=== PATIENT | male | born 1945 | race Caucasian/White ===

== ENCOUNTER 2022-01-07 17:11 | Observation (INO) ==
--- NOTE | 2022-01-07 18:03 | DR.HTN ---
HPI Time Seen Time Seen by Provider: 01/07/22 18:01 Primary Care Physician Primary Care Physician: DR. GUY HPI Comment HPI Comment: PATIENT IS 76YR OLD MALE IN ER WITH COMPLAINING OF ELEVATED BP AND CHEST PAIN. CHEST PAIN FEEL LIKE HEART BURN. NO FEVER, COUGH OR CONGESTION. HISTORY CVA AND HYPERTENSION. WAS ON METOPROLOL BUT DISCONTINUE DUE TO BRADYCARDIA. HISTORY CVA AND HTN. CURRENTLY ON ELIQUIS. Complaints Chief Complaint:: PT STATES HE CHECKED HIS BP AT 2 TODAY AND IT WAS 205/64 AT HOME. PT HAS HAD BP PROBLEMS FOR AWHILE. PT STATES THAT HE ALSO HAS BEEN HAVING PAIN THAT FEELS LIKE HEART BURN. PT HAVING NO PAIN AT THIS TIME. HE WAS SUPPOSE TO SEE A ON SATURDAY TO WEAR A HEART MONITOR. COVID-19 Coronavirus risk:travel/contact w/high risk person: No Has patient experienced Coronavirus symptoms: No Reviewed Nurses Notes Reviewed: Yes Source History Provided: Patient and Family Member Mode of Arrival Mode of Arrival: Ambulatory Timing Onset of Chief Complaint: 01/07/22 Context Treatment of HTN Prior to Arrival: Recent Cessation and Rec. change in med regime Associated Signs and Symptoms HTN Associated Signs and Symptoms: Weakness and Shortness of Breath PMH PMH Past Medical History: Yes Past Medical History: CVA and Hypertension Past Medical History Comment: CVA IN 2005 Past Surgical History: Yes Past Surgical History Comment: CATARACT SURGERY ON BOTH EYES Family History History of Family Medical Conditions: Yes Family Medical History Comment: STROKE Social History Does patient currently use any type of tobacco product: No Have you used tobacco products in the last 12 months: No Type of Tobacco Use: None Alcohol Use: None Do you use any recreational Drugs:: No Lives With: Spouse Lives Where: Home Travel Risk Coronavirus risk:travel/contact w/high risk person: No Has patient experienced Coronavirus symptoms: No Infectious screening Have you traveled outside the country in the last 6 months?: No Isolation: Standard ROS Review of Systems Constitutional: See HPI, Weakness and Fatigue; negative Fever Eyes: No Symptoms Reported and See HPI; negative Blurred Vision ENTM: No Symptoms Reported and See HPI; negative Nose Discharge or Nose Congestion Respiratoy: No Symptoms Reported, See HPI and Short of Breath (ON EXERTION.); negative Moist Cough or Wheezing Cardiovascular: No Symptoms Reported, See HPI and Chest Pain; negative Palpitati ons (BRADYCARDIA.) Gastrointestinal/Abdominal: No Symptoms Reported and See HPI; negative Abdominal Pain, Diarrhea, Nausea or Vomiting Genitourinary: No Symptoms Reported and See HPI; negative Dysuria Neurological: See HPI and Weakness; negative Headache or Dizziness Musculoskeletal: No Symptoms Reported and See HPI; negative Muscle Pain Integumentary: No Symptoms Reported and See HPI; negative Rash or Juandice Hematologic/Lymphatic: No Symptoms Reported, See HPI, Easy Bleeding and Easy Bruising; negative Swollen Glands Endocrine: No Symptoms Reported and See HPI; negative Increased Thirst or Increased Urine Psychiatric: No Symptoms Reported and See HPI All Other Systems: Reviewed and Negative PE Vital Signs Vitals: Temperature 98.0 F Pulse Rate 51 Respiratory Rate 29 Blood Pressure 207/81 O2 Sat by Pulse Oximetry 98 General Limitations: No Limitations General Appearance: Alert and In No Apparent Distress Head Head Exam: Normal Inspection and Atraumatic Eyes Eye exam: Normal Appearance; negative Scleral Icterus or Conjunctival Injection Pupils: Regular, Round: Bilateral and Reactive: Bilateral Sclera/Conjunctival: Normal Inspection: Bilateral ENT ENT Exam: Normal Exam, Normal Oropharynx, Normal External Ear Exam and TM's Normal Bilaterally Neck Neck Exam: Normal Inspection and Trachea Midline; negative Tenderness Chest Chest Inspection: Normal Inspection and Symmetric Chest Wall Rise; negative Tenderness Respiratory Respiratory Exam: Normal Lung Sounds Bilat; negative Accessory Muscle Use, Chest Wall Tenderness or Respiratory Distress Respiratory Exam: Bilateral: Rhonchi Cardiovascular Cardiovascular Exam: Bradycardia and Systolic Murmur; negative Diastolic Murmur Abdominal Exam Abdominal Exam: Normal Inspection, Normal Bowel Sounds and Soft; negative Tenderness Extremities Extremities Exam: Normal Inspection and Normal Capillary Refill Back Back Exam: Normal Inspection; negative (R) CVA Tenderness or (L) CVA Tenderness Neurologic Neurological Exam: Alert and Oriented X3; negative Motor Sensory Deficit Patient Oriented To: Person, Place and Time Speech: Fluid Speech Cranial Nerve Exam: EOM Function (II, III, IV, ): Normal, Facial Sensation (V): Normal, Facial Palsy (VII): Normal, Gag reflex (XI): Normal and Tongue Deviation: Normal Motor Strength - LUE: 5/5 Motor Strength - RUE: 5/5 Motor Strength - LLE: 5/5 Motor Strength - RLE: 5/5 Upper Motor Neuron Exam: Babinski Sign: Normal Psychiatric Psychiatric Exam: Normal Affect and Normal Mood Skin Skin Exam: Intact MDM Differential Diagnosis Differential Diagnosis: Hypertensive emergency (BRADYCARDIA, CHEST PAIN.) COURSE Treatment Treatment: SEE ORDERS DONE WHILE WAS IN ER. Consultation Consultation Comments: DISCUSSED PATIENT WITH DR. FENG. HE WILL ADMIT PATIENT. Education/Counseling Education/Counseling: Patient and Family Educated On: Treatment and Diagnosis ROR Labs Reviewed Laboratory Results Reviewed?: Yes Result Diagrams: 01/08/22 04:50 01/08/22 04:50 Laboratory: WBC 5.1 X10^3/uL (3.6-10.0) 01/07/22 18:21 RBC 3.99 X10^6/uL (4.7-6.0) L 01/07/22 18:21 Hgb 10.3 g/dL (13.5-18.0) L 01/07/22 18:21 Hct 30.2 % (42.0-54.0) L 01/07/22 18:21 MCV 75.8 fL (80.0-100.0) L 01/07/22 18:21 MCH 25.8 pg (27.0-34.0) L 01/07/22 18:21 MCHC 34.0 g/dL (33.0-35.0) 01/07/22 18:21 RDW 17.4 % (11.6-16.5) H 01/07/22 18:21 Plt Count 126 X10^3/uL (150.0-450.0) L 01/07/22 18:21 MPV 8.9 fL (7.4-11.0) 01/07/22 18:21 Neut % (Auto) 75.7 % (42.0-75.0) H 01/07/22 18:21 Lymph % (Auto) 12.5 % (21.0-51.0) L 01/07/22 18:21 [place] % (Auto) 5.8 % (0.0-13.0) 01/07/22 18:21 Eos % (Auto) 4.1 % (0.9-2.9) H 01/07/22 18:21 Baso % (Auto) 1.9 % (0.2-1.0) H 01/07/22 18:21 Neut # (Auto) 3.9 x10^3/uL (2.2-4.8) 01/07/22 18:21 Lymph # (Auto) 0.6 X10^3/uL (1.3-2.9) L 01/07/22 18:21 [place] # (Auto) 0.3 x10^3/uL (0.3-0.8) 01/07/22 18:21 Eos # (Auto) 0.2 x10^3/uL (0.0-0.2) 01/07/22 18:21 Baso # (Auto) 0.1 X10^3/uL (0.0-0.1) 01/07/22 18:21 Absolute Nucleated RBC 0.0 /100WBC 01/07/22 18:21 D-Dimer 0.57 ug/ml (0.0-0.57) 01/07/22 18:21 Sodium 139 mmol/L (136-145) 01/07/22 18:21 Corrected Sodium 140 mmol/L (136-145) 01/07/22 18:21 Potassium 3.9 mmol/L (3.5-5.1) 01/07/22 18:21 Chloride 102 mmol/L (98-107) 01/07/22 18:21 Carbon Dioxide 30.0 mmol/L (21-32) 01/07/22 18:21 BUN 14 mg/dL (7-18) 01/07/22 18:21 Creatinine 1.32 mg/dL (0.70-1.30) H 01/07/22 18:21 Est GFR (MDRD) Af Amer > 60 (>60) 01/07/22 18:21 Est GFR (MDRD) Non-Af 56 (>60) L 01/07/22 18:21 Glucose 150 mg/dL (65-99) H 01/07/22 18:21 Calcium 8.3 mg/dL (8.5-10.1) L 01/07/22 18:21 Corrected Calcium 9.0 mg/dL (8.5-10.1) 01/07/22 18:21 Total Bilirubin 0.30 mg/dL (0.2-1.0) 01/07/22 18:21 AST 17 Units/L (15-37) 01/07/22 18:21 ALT 13 Units/L (12-78) 01/07/22 18:21 Alkaline Phosphatase 87 Units/L (46-116) 01/07/22 18:21 Creatine Kinase 30 Units/L (39-308) L 01/07/22 18:21 Troponin I High Sens 16.3 ng/L (4.0-60.0) 01/07/22 18:21 B-Natriuretic Peptide 449 pg/mL (0-79) H 01/07/22 18:21 Total Protein 7.4 g/dL (6.4-8.2) 01/07/22 18:21 Albumin 3.1 g/dL (3.4-5.0) L 01/07/22 18:21 Globulin 4.3 g/dL (2.5-4.5) 01/07/22 18:21 Albumin/Globulin Ratio 0.7 Ratio (1.1-2.1) L 01/07/22 18:21 SARS-CoV-2 (PCR) Negative (NEGATIVE) 01/07/22 22:56 XRAY XRAY Interpreted by: Radiologist (REPORT NOTED.) and Self EKG Rate: 54 [place]: Normal Rhythm: SB Block: None Hypertrophy: None ST: Nonsp Opioid Opioid Risk Tool Age (Stef box if 16-45): No History of Preadolescent Sexual Abuse: No Total: 0 Total Score Risk Category: Low Risk Copyright: Arnaud GROSSMAN predicting aberrant behaviors Discharge Plan Diagnosis Discharge Problem: Hypertension, Bradycardia, Chest pain Discharge Plan Patient Disposition: ADMITTED INPATIENT Condition: Stable
--- NOTE | 2022-01-07 18:36 | RAD ---
HISTORYHTN, CHEST PAINSTUDYCHEST, 1 VIEWCOMPARISONNone availableTECHNIQUEChest radiographic imaging, AP portable projection, 1 imageFINDINGSNo cardiomegaly.No focal airspace disease.Mild diffuse increased interstitial markings; likely chronic changes.No pleural effusion.No pneumothorax.No acute osseous abnormality.IMPRESSIONNo imaging findings of acute cardiopulmonary disease.Electronically signed by: Lauro Patterson (Jan 07, 2022 18:34:50)
[2022-01-07 18:43] LABS: BASOPHILS # (AUTO) 0.1 X10^3/uL (0.0-0.1); BASOPHILS % (AUTO) 1.9 % (0.2-1.0); EOSINOPHILS # (AUTO) 0.2 x10^3/uL (0.0-0.2); EOSINOPHILS % (AUTO) 4.1 % (0.9-2.9); HEMATOCRIT 30.2 % (42.0-54.0); HEMOGLOBIN 10.3 g/dL (13.5-18.0); LYMPHOCYTES # (AUTO) 0.6 X10^3/uL (1.3-2.9); LYMPHOCYTES % (AUTO) 12.5 % (21.0-51.0); MEAN CORPUSCULAR HEMOGLOBIN 25.8 pg (27.0-34.0); MEAN CORPUSCULAR VOLUME 75.8 fL (80.0-100.0); MEAN PLATELET VOLUME 8.9 fL (7.4-11.0); MONOCYTES # (AUTO) 0.3 x10^3/uL (0.3-0.8); MONOCYTES % (AUTO) 5.8 % (0.0-13.0); NEUTROPHILS # (AUTO) 3.9 x10^3/uL (2.2-4.8); NEUTROPHILS % (AUTO) 75.7 % (42.0-75.0); RED BLOOD COUNT 3.99 X10^6/uL (4.7-6.0); RED CELL DISTRIBUTION WIDTH 17.4 % (11.6-16.5); WHITE BLOOD COUNT 5.1 X10^3/uL (3.6-10.0)
[2022-01-07 18:53] LABS: ALANINE AMINOTRANSFERASE 13 Units/L (12-78); ALBUMIN 3.1 g/dL (3.4-5.0); ALKALINE PHOSPHATASE 87 Units/L (46-116); ASPARTATE AMINO TRANSFERASE 17 Units/L (15-37); BLOOD UREA NITROGEN 14 mg/dL (7-18); CALCIUM 8.3 mg/dL (8.5-10.1); CHLORIDE 102 mmol/L (98-107); COR NA(FOR HYPERGLY) 140 mmol/L (136-145); CREATINE KINASE 30 Units/L (39-308); CREATININE 1.32 mg/dL (0.70-1.30); SODIUM 139 mmol/L (136-145); TOTAL PROTEIN 7.4 g/dL (6.4-8.2); eGFR NON BLACK RACES 56 (>60)
[2022-01-07] MEDS ORDERED: APRESOLINE TAB 25 MG PO ONE (20:00)
[2022-01-07] MEDS ORDERED: COZAAR PO ONE (21:04)
[2022-01-07] MEDS ORDERED: APRESOLINE INJ 20 MG VIAL IVP ONE ×2 (22:09→23:17)
[2022-01-07] MEDS ORDERED: APRESOLINE INJ 20 MG VIAL ONE ×2 (22:31→23:21)
[2022-01-08 00:04] VITALS: BMI 24.4
[2022-01-08 05:14] LABS: BASOPHILS % (AUTO) 0.5 % (0.2-1.0); EOSINOPHILS # (AUTO) 0.2 x10^3/uL (0.0-0.2); EOSINOPHILS % (AUTO) 3.8 % (0.9-2.9); HEMATOCRIT 29.1 % (42.0-54.0); HEMOGLOBIN 9.9 g/dL (13.5-18.0); LYMPHOCYTES # (AUTO) 0.8 X10^3/uL (1.3-2.9); LYMPHOCYTES % (AUTO) 12.9 % (21.0-51.0); MEAN CORPUSCULAR HEMOGLOBIN 25.5 pg (27.0-34.0); MEAN CORPUSCULAR HGB CONC 33.9 g/dL (33.0-35.0); MEAN CORPUSCULAR VOLUME 75.3 fL (80.0-100.0); MEAN PLATELET VOLUME 8.9 fL (7.4-11.0); MONOCYTES # (AUTO) 0.5 x10^3/uL (0.3-0.8); MONOCYTES % (AUTO) 7.8 % (0.0-13.0); NEUTROPHILS # (AUTO) 4.6 x10^3/uL (2.2-4.8); RED BLOOD COUNT 3.87 X10^6/uL (4.7-6.0); WHITE BLOOD COUNT 6.1 X10^3/uL (3.6-10.0)
[2022-01-08 05:22] LABS: ALANINE AMINOTRANSFERASE 10 Units/L (12-78); ALBUMIN 2.8 g/dL (3.4-5.0); ALKALINE PHOSPHATASE 79 Units/L (46-116); ASPARTATE AMINO TRANSFERASE 11 Units/L (15-37); BLOOD UREA NITROGEN 14 mg/dL (7-18); CALCIUM 8.2 mg/dL (8.5-10.1); CARBON DIOXIDE 30.9 mmol/L (21-32); CHLORIDE 105 mmol/L (98-107); COR CA(FOR HYPOALB) 9.2 mg/dL (8.5-10.1); COR NA(FOR HYPERGLY) 142 mmol/L (136-145); CREATININE 1.09 mg/dL (0.70-1.30); MAGNESIUM 1.9 mg/dL (1.7-2.9); SODIUM 142 mmol/L (136-145); TOTAL PROTEIN 6.8 g/dL (6.4-8.2); eGFR NON BLACK RACES > 60 (>60)
[2022-01-08 06:08] LABS: INR 1.27 (0.8-1.3)
[2022-01-08] MEDS ORDERED: K-RIDER 10 MEQ/NS 100 ML 10 MEQ/100 ML BAG IV PRN (06:48)
[2022-01-08] MEDS ORDERED: K-DUR TAB 20 MEQ PO PRN (06:48)
[2022-01-08] MEDS ORDERED: POTASSIUM CHL 60 MEQ/NS 0.45% 500 ML IV PRN (06:48)
[2022-01-08] MEDS ORDERED: POTASSIUM CHL 40 MEQ/NS 0.45% 500 ML IV PRN (06:48)
[2022-01-08] MEDS ORDERED: KLOR-CON PO PRN (06:48)
[2022-01-08] MEDS ORDERED: POTASSIUM CHLORIDE LIQ 20 MEQ UDC PO PRN (06:48)
[2022-01-08] MEDS ORDERED: MICRO K EXTEN CAP 10 MEQ PO PRN (06:48)
[2022-01-08] MEDS ORDERED: NS 250 ML IV 250 ML IV ONE (07:43)
[2022-01-08] MEDS: MAGNESIUM SULFATE 1 GRAM/100 mL PREMIX 1 G/100 ML BAG IV PRN ×2 (07:49→09:25)
[2022-01-08] MEDS ORDERED: LOVENOX INJ 40 MG SYR SC SCH (10:00)
[2022-01-08] MEDS: LOVAZA PO SCH ×2 (10:36→20:59)
[2022-01-08] MEDS: ZOLOFT PO SCH (10:37)
[2022-01-08] MEDS: TAB-A-VITE PO SCH (10:37)
[2022-01-08] MEDS: PLAVIX PO SCH (10:37)
[2022-01-08] MEDS: PEPCID TAB 20 MG PO SCH (10:37)
[2022-01-08] MEDS ORDERED: FLORINEF PO SCH (11:00)
[2022-01-08] MEDS: CATAPRES TAB 0.1 MG PO SCH ×2 (11:07→20:59)
--- NOTE | 2022-01-08 11:19 | DR.H&P ---
H&P History & Physical for Day of: H&P Date: 01/08/22 Chief Complaint Chief Complaint: Chest pain Allergies Allergies Allergy/AdvReac Type Severity Reaction Status Date / Time Penicillins Allergy Verified 01/07/22 18:24 History of Present Illness History of Present Illness: Pt is a 76 year old male past medical history of Hypertension, Atrial fibrillation, and MDD, presenting with accelerated hypertension and chest pain that started yesterday. Per , pt felt chest discomfort and when she checked his blood pressure it was elevated at over 200 systolic. Pt recently has been evaluated by cardiology in [place] for Atrial fibrillation and will have follow up to receive holter monitor this . In the ED patient was noted to have elevated blood pressure. He was given IV hydralazine and po antihypertensive medication to bring down blood pressure. L abs/imaging: Wbc 6.1, Hgb 9.9, Plt 114, Na 142, K 3.7, Creatinine 1.09, Glucose 111, Troponin negative x 2, BNP 449, Ekg: no STEMI, CXR was obtained that revealed:no acute cardiopulmonary findings. Pt was admitted and started on clonidine 0.1mg BID and hydralazine 25mg BID. Home medications were resumed and fludrocoritisone held due to hypertension that he would normally take for his chronic hypotension. Will recheck blood pressure every Q2h. Can use IV hydralazine 10mg Q4h prn for SBP >160. Otherwise conitnue to closely monitor and follow up labs. Past Medical History Past Medical History: CVA and Hypertension Past Surgical History Surgical History: Tonsillectomy and Other Social History Does patient currently use any type of tobacco product: No Have you used tobacco products in the last 12 months: No Type of Tobacco Use: None Does any household member use tobacco: No Alcohol Use: None Drug Use: None Medications Home Medications: Penicillins Allergy (Verified 01/07/22 18:24) CONTINUE taking the following medications apixaban 5 mg tablet (Eliquis) 5 mg PO BID 01/07/22 [History] clopidogrel 75 mg tablet 75 mg PO QAM 01/07/22 [History] divalproex 500 mg tablet,extended release 24 hr 500 mg PO QPM 01/07/22 [History] famotidine 20 mg tablet 20 mg PO QAM 01/07/22 [History] fludrocortisone 0.1 mg tablet 0.05 mg PO QAM 01/07/22 [History] losartan 25 mg tablet 12.5 mg PO QPM 01/07/22 [History] multivitamin 1 cap PO QAM 01/07/22 [History] omega [id number]-fish oil 1,200 mg (144 mg-216 mg) capsule (Fish Oil) 1 cap PO QPM 01/07/22 [History] rosuvastatin 40 mg tablet 40 mg PO QPM 01/07/22 [History] sertraline 100 mg tablet 150 mg PO QAM 01/07/22 [History] Labs Result Diagrams: 01/08/22 04:50 01/08/22 04:50 Labs: Laboratory WBC 6.1 X10^3/uL (3.6-10.0) 01/08/22 04:50 RBC 3.87 X10^6/uL (4.7-6.0) L 01/08/22 04:50 Hgb 9.9 g/dL (13.5-18.0) L 01/08/22 04:50 Hct 29.1 % (42.0-54.0) L 01/08/22 04:50 MCV 75.3 fL (80.0-100.0) L 01/08/22 04:50 MCH 25.5 pg (27.0-34.0) L 01/08/22 04:50 MCHC 33.9 g/dL (33.0-35.0) 01/08/22 04:50 RDW 17.0 % (11.6-16.5) H 01/08/22 04:50 Plt Count 114 X10^3/uL (150.0-450.0) L 01/08/22 04:50 MPV 8.9 fL (7.4-11.0) 01/08/22 04:50 Neut % (Auto) 75.0 % (42.0-75.0) 01/08/22 04:50 Lymph % (Auto) 12.9 % (21.0-51.0) L 01/08/22 04:50 [place] % (Auto) 7.8 % (0.0-13.0) 01/08/22 04:50 Eos % (Auto) 3.8 % (0.9-2.9) H 01/08/22 04:50 Baso % (Auto) 0.5 % (0.2-1.0) 01/08/22 04:50 Neut # (Auto) 4.6 x10^3/uL (2.2-4.8) 01/08/22 04:50 Lymph # (Auto) 0.8 X10^3/uL (1.3-2.9) L 01/08/22 04:50 [place] # (Auto) 0.5 x10^3/uL (0.3-0.8) 01/08/22 04:50 Eos # (Auto) 0.2 x10^3/uL (0.0-0.2) 01/08/22 04:50 Baso # (Auto) 0.0 X10^3/uL (0.0-0.1) 01/08/22 04:50 Absolute Nucleated RBC 0.1 /100WBC 01/08/22 04:50 PT 15.4 SECONDS (11.8-14.3) 01/08/22 04:50 INR Target Range - 01/08/22 04:50 INR 1.27 (0.8-1.3) 01/08/22 04:50 APTT 40.2 SECONDS (22.9-36.5) H 01/08/22 04:50 PTT Comment - 01/08/22 04:50 D-Dimer 0.57 ug/ml (0.0-0.57) 01/07/22 18:21 Sodium 142 mmol/L (136-145) 01/08/22 04:50 Corrected Sodium 142 mmol/L (136-145) 01/08/22 04:50 Potassium 3.7 mmol/L (3.5-5.1) 01/08/22 04:50 Chloride 105 mmol/L (98-107) 01/08/22 04:50 Carbon Dioxide 30.9 mmol/L (21-32) 01/08/22 04:50 BUN 14 mg/dL (7-18) 01/08/22 04:50 Creatinine 1.09 mg/dL (0.70-1.30) 01/08/22 04:50 Est GFR (MDRD) Af Amer > 60 (>60) 01/08/22 04:50 Est GFR (MDRD) Non-Af > 60 (>60) 01/08/22 04:50 Glucose 111 mg/dL (65-99) H 01/08/22 04:50 Calcium 8.2 mg/dL (8.5-10.1) L 01/08/22 04:50 Corrected Calcium 9.2 mg/dL (8.5-10.1) 01/08/22 04:50 Magnesium 1.9 mg/dL (1.7-2.9) 01/08/22 04:50 Total Bilirubin 0.30 mg/dL (0.2-1.0) 01/08/22 04:50 AST 11 Units/L (15-37) L 01/08/22 04:50 ALT 10 Units/L (12-78) L 01/08/22 04:50 Alkaline Phosphatase 79 Units/L (46-116) 01/08/22 04:50 Creatine Kinase 19 Units/L (39-308) L 01/08/22 04:50 Troponin I High Sens 14.4 ng/L (4.0-60.0) 01/08/22 04:50 B-Natriuretic Peptide 449 pg/mL (0-79) H 01/07/22 18:21 Total Protein 6.8 g/dL (6.4-8.2) 01/08/22 04:50 Albumin 2.8 g/dL (3.4-5.0) L 01/08/22 04:50 Globulin 4.0 g/dL (2.5-4.5) 01/08/22 04:50 Albumin/Globulin Ratio 0.7 Ratio (1.1-2.1) L 01/08/22 04:50 SARS-CoV-2 (PCR) Negative (NEGATIVE) 01/07/22 22:56 Review of Systems Constitutional: No Symptoms Reported Eyes: No Symptoms Reported ENT: No Symptoms Reported Respiratory: No Symptoms Reported Cardiovascular: Chest Pain Gastrointestinal: No Symptoms Reported Genitourinary: No Symptoms Reported Musculoskeletal: No Symptoms Reported Skin: No Symptoms Reported Neurological: No Symptoms Reported Physical Exam Vital Signs: Temperature 97.9 F Pulse Rate [Radial] 60 Pulse Rate 51 Respiratory Rate 20 Blood Pressure [Left Arm] 214/83 Blood Pressure 207/81 O2 Sat by Pulse Oximetry 93 Oriented: Normal Eyes: Normal Ear: Normal Nose: Normal Throat: Normal Respiratory: Clear Throughout Cardiovascular: Normal : Normal Auscultation: Bowel Sounds: Normal Palpation: Normal Tenderness: Normal Skin: Normal Musculoskeletal: Normal Psychiatric: Normal Mood Description: Calm and Appropriate Affect: Normal Speech Pattern: Clear and Appropriate Assessment/Plan (1) Accelerated hypertension: Narrative Support Text: Monitor BP Q2h start on clonidine and hydralazine Restart home medications. Status: Acute (2) Bradycardia: Status: Acute (3) Chest pain: Narrative Support Text: Troponin negative x 2. Ekg no STEMI Status: Acute Review H&P Reviewed: Yes Patient was examined?: Yes
[2022-01-08] MEDS: APRESOLINE INJ 20 MG VIAL IVP PRN (14:04)
[2022-01-08] MEDS: CRESTOR TAB 10 MG PO SCH (20:59)
[2022-01-08] MEDS: ELIQUIS PO SCH (21:00)
[2022-01-08] MEDS ORDERED: DEPAKOTE D.R. TAB PO ONE ×2 (21:00→21:01)
[2022-01-08] MEDS ORDERED: ELIQUIS PO SCH (21:00)
[2022-01-08] MEDS: APRESOLINE TAB 25 MG PO SCH (21:00)
[2022-01-09 05:02] LABS: BASOPHILS % (AUTO) 0.9 % (0.2-1.0); EOSINOPHILS # (AUTO) 0.3 x10^3/uL (0.0-0.2); HEMATOCRIT 27.8 % (42.0-54.0); HEMOGLOBIN 9.4 g/dL (13.5-18.0); LYMPHOCYTES # (AUTO) 0.9 X10^3/uL (1.3-2.9); LYMPHOCYTES % (AUTO) 17.3 % (21.0-51.0); MEAN CORPUSCULAR HEMOGLOBIN 25.4 pg (27.0-34.0); MEAN CORPUSCULAR HGB CONC 33.8 g/dL (33.0-35.0); MEAN CORPUSCULAR VOLUME 75.3 fL (80.0-100.0); MEAN PLATELET VOLUME 8.9 fL (7.4-11.0); MONOCYTES # (AUTO) 0.5 x10^3/uL (0.3-0.8); MONOCYTES % (AUTO) 9.5 % (0.0-13.0); NEUTROPHILS # (AUTO) 3.7 x10^3/uL (2.2-4.8); NEUTROPHILS % (AUTO) 67.3 % (42.0-75.0); RED CELL DISTRIBUTION WIDTH 17.4 % (11.6-16.5); WHITE BLOOD COUNT 5.4 X10^3/uL (3.6-10.0)
[2022-01-09 05:17] LABS: ALANINE AMINOTRANSFERASE 9 Units/L (12-78); ALBUMIN 2.7 g/dL (3.4-5.0); ALKALINE PHOSPHATASE 74 Units/L (46-116); ASPARTATE AMINO TRANSFERASE 11 Units/L (15-37); BLOOD UREA NITROGEN 13 mg/dL (7-18); CALCIUM 7.9 mg/dL (8.5-10.1); CARBON DIOXIDE 28.9 mmol/L (21-32); CHLORIDE 103 mmol/L (98-107); COR CA(FOR HYPOALB) 8.9 mg/dL (8.5-10.1); CREATININE 1.06 mg/dL (0.70-1.30); SODIUM 138 mmol/L (136-145); TOTAL PROTEIN 6.5 g/dL (6.4-8.2); eGFR NON BLACK RACES > 60 (>60)
[2022-01-09] MEDS: CATAPRES TAB 0.1 MG PO SCH (08:08)
[2022-01-09] MEDS: TAB-A-VITE PO SCH (08:08)
[2022-01-09] MEDS: APRESOLINE TAB 25 MG PO SCH ×3 (08:08→20:08)
[2022-01-09] MEDS: ELIQUIS PO SCH ×2 (08:08→20:09)
[2022-01-09] MEDS: PEPCID TAB 20 MG PO SCH (08:09)
[2022-01-09] MEDS: LOVAZA PO SCH ×2 (08:10→20:09)
[2022-01-09] MEDS ORDERED: ZOLOFT ONE (08:11)
[2022-01-09] MEDS: COZAAR PO SCH (08:11)
[2022-01-09] MEDS: ZOLOFT PO SCH (08:13)
[2022-01-09] MEDS ORDERED: COZAAR PO SCH (09:00)
[2022-01-09] MEDS: PLAVIX PO SCH (09:30)
[2022-01-09] MEDS ORDERED: APRESOLINE TAB 25 MG PO ONE (13:17)
[2022-01-09] MEDS ORDERED: CATAPRES TAB 0.1 MG PO ONE (15:54)
[2022-01-09] MEDS ORDERED: CATAPRES TAB 0.2 MG ONE (19:27)
[2022-01-09] MEDS ORDERED: APRESOLINE TAB 25 MG ONE (19:27)
[2022-01-09] MEDS: CATAPRES TAB 0.2 MG PO SCH ×2 (19:46→20:08)
[2022-01-09] MEDS: CRESTOR TAB 10 MG PO SCH (20:09)
[2022-01-09] MEDS ORDERED: ZOFRAN INJ 4 MG VIAL IVP PRN (23:08)
[2022-01-09] MEDS ORDERED: VISTARIL PO PRN (23:09)
[2022-01-09] MEDS ORDERED: ZOFRAN INJ 4 MG VIAL ONE (23:11)
[2022-01-09] MEDS ORDERED: VISTARIL PO ONE (23:11)
[2022-01-09] MEDS: APRESOLINE INJ 20 MG VIAL IVP PRN (23:18)
[2022-01-10 05:24] LABS: BASOPHILS % (AUTO) 0.7 % (0.2-1.0); EOSINOPHILS # (AUTO) 0.2 x10^3/uL (0.0-0.2); EOSINOPHILS % (AUTO) 2.8 % (0.9-2.9); HEMATOCRIT 28.4 % (42.0-54.0); HEMOGLOBIN 9.5 g/dL (13.5-18.0); LYMPHOCYTES # (AUTO) 0.7 X10^3/uL (1.3-2.9); LYMPHOCYTES % (AUTO) 10.9 % (21.0-51.0); MEAN CORPUSCULAR HEMOGLOBIN 25.2 pg (27.0-34.0); MEAN CORPUSCULAR HGB CONC 33.3 g/dL (33.0-35.0); MEAN CORPUSCULAR VOLUME 75.5 fL (80.0-100.0); MEAN PLATELET VOLUME 9.2 fL (7.4-11.0); MONOCYTES # (AUTO) 0.4 x10^3/uL (0.3-0.8); MONOCYTES % (AUTO) 6.8 % (0.0-13.0); NEUTROPHILS # (AUTO) 5.2 x10^3/uL (2.2-4.8); NEUTROPHILS % (AUTO) 78.8 % (42.0-75.0); RED BLOOD COUNT 3.76 X10^6/uL (4.7-6.0); RED CELL DISTRIBUTION WIDTH 17.2 % (11.6-16.5); WHITE BLOOD COUNT 6.6 X10^3/uL (3.6-10.0)
[2022-01-10 05:36] LABS: ALANINE AMINOTRANSFERASE 9 Units/L (12-78); ALBUMIN 2.7 g/dL (3.4-5.0); ALKALINE PHOSPHATASE 75 Units/L (46-116); ASPARTATE AMINO TRANSFERASE 10 Units/L (15-37); BLOOD UREA NITROGEN 13 mg/dL (7-18); CARBON DIOXIDE 30.9 mmol/L (21-32); CHLORIDE 102 mmol/L (98-107); COR NA(FOR HYPERGLY) 138 mmol/L (136-145); CREATININE 1.07 mg/dL (0.70-1.30); MAGNESIUM 2.1 mg/dL (1.7-2.9); SODIUM 137 mmol/L (136-145); TOTAL PROTEIN 6.5 g/dL (6.4-8.2); eGFR NON BLACK RACES > 60 (>60)
--- NOTE | 2022-01-10 07:45 | PCM.PROG ---
Progress Note Progress Note for Day of Date of Exam: 01/09/22 Subjective Subjective: Pt is a 76 year old male past medical history of Hypertension, Atrial fibrillation, and MDD, admitted for accelerated hypertension and chest pain pain rule out. Patient is feeling a little better this morning. Denies any chest pain. No acute events overnight. Labs/imaging: Wbc 5.4, Hgb 9.4, Plt 117, Na 138, K 3.8, Creatinine 1.06, Glucose 110, Troponin negative x 2, BNP 449, Ekg: no STEMI, CXR was obtained that revealed:no acute cardiopulmonary findings. Pt is currently on clonidine 0.1mg BID, hydralazine 25mg BID, and Losartan 25mg. BP fluctuating, but remains elevated. Will increase clonidine and hydralazine. Will recheck blood pressure and continue to monitor trend. Can use IV hyd ralazine 10mg Q4h prn for SBP >160. Otherwise continue to closely monitor and follow up labs. Past Medical Family Social History Allergies: Allergies Penicillins Allergy (Verified 01/07/22 18:24) Review of Systems ROS: No change since H&P Vital Signs and I&O's Vital Signs: Temperature 97.9 F Pulse Rate [Radial] 56 Pulse Rate 51 Respiratory Rate 20 Blood Pressure [Left Arm] 150/65 Blood Pressure 207/81 O2 Sat by Pulse Oximetry 97 Intake and Output: Intake & Output 01/07/22 01/08/22 01/09/22 01/10/22 23:59 23:59 23:59 23:59 Intake Total 3140 / 3140 2213 / 2213 180 / 180 Balance 3140 / 3140 2213 / 2213 180 / 180 Physical Exam Oriented: Normal Eyes: Normal Ear: Normal Nose: Normal Throat: Normal Cardiovascular: Normal : Normal Auscultation: Bowel Sounds: Normal Tenderness: Normal Skin: Normal Musculoskeletal: Normal Psychiatric: Normal Mood Description: Calm and Appropriate Affect: Normal Speech Pattern: Clear and Appropriate Laboratory and Diagnostics Result Diagrams: 01/10/22 04:42 01/10/22 04:42 Labs: Laboratory WBC 6.6 X10^3/uL (3.6-10.0) 01/10/22 04:42 RBC 3.76 X10^6/uL (4.7-6.0) L 01/10/22 04:42 Hgb 9.5 g/dL (13.5-18.0) L 01/10/22 04:42 Hct 28.4 % (42.0-54.0) L 01/10/22 04:42 MCV 75.5 fL (80.0-100.0) L 01/10/22 04:42 MCH 25.2 pg (27.0-34.0) L 01/10/22 04:42 MCHC 33.3 g/dL (33.0-35.0) 01/10/22 04:42 RDW 17.2 % (11.6-16.5) H 01/10/22 04:42 Plt Count 119 X10^3/uL (150.0-450.0) L 01/10/22 04:42 MPV 9.2 fL (7.4-11.0) 01/10/22 04:42 Neut % (Auto) 78.8 % (42.0-75.0) H 01/10/22 04:42 Lymph % (Auto) 10.9 % (21.0-51.0) L 01/10/22 04:42 [place] % (Auto) 6.8 % (0.0-13.0) 01/10/22 04:42 Eos % (Auto) 2.8 % (0.9-2.9) 01/10/22 04:42 Baso % (Auto) 0.7 % (0.2-1.0) 01/10/22 04:42 Neut # (Auto) 5.2 x10^3/uL (2.2-4.8) H 01/10/22 04:42 Lymph # (Auto) 0.7 X10^3/uL (1.3-2.9) L 01/10/22 04:42 [place] # (Auto) 0.4 x10^3/uL (0.3-0.8) 01/10/22 04:42 Eos # (Auto) 0.2 x10^3/uL (0.0-0.2) 01/10/22 04:42 Baso # (Auto) 0.0 X10^3/uL (0.0-0.1) 01/10/22 04:42 Absolute Nucleated RBC 0.0 /100WBC 01/10/22 04:42 PT 15.4 SECONDS (11.8-14.3) 01/08/22 04:50 INR Target Range - 01/08/22 04:50 INR 1.27 (0.8-1.3) 01/08/22 04:50 APTT 40.2 SECONDS (22.9-36.5) H 01/08/22 04:50 PTT Comment - 01/08/22 04:50 D-Dimer 0.57 ug/ml (0.0-0.57) 01/07/22 18:21 Sodium 137 mmol/L (136-145) 01/10/22 04:42 Corrected Sodium 138 mmol/L (136-145) 01/10/22 04:42 Potassium 4.3 mmol/L (3.5-5.1) 01/10/22 04:42 Chloride 102 mmol/L (98-107) 01/10/22 04:42 Carbon Dioxide 30.9 mmol/L (21-32) 01/10/22 04:42 BUN 13 mg/dL (7-18) 01/10/22 04:42 Creatinine 1.07 mg/dL (0.70-1.30) 01/10/22 04:42 Est GFR (MDRD) Af Amer > 60 (>60) 01/10/22 04:42 Est GFR (MDRD) Non-Af > 60 (>60) 01/10/22 04:42 Glucose 125 mg/dL (65-99) H 01/10/22 04:42 Calcium 8.0 mg/dL (8.5-10.1) L 01/10/22 04:42 Corrected Calcium 9.0 mg/dL (8.5-10.1) 01/10/22 04:42 Magnesium 2.1 mg/dL (1.7-2.9) 01/10/22 04:42 Total Bilirubin 0.40 mg/dL (0.2-1.0) 01/10/22 04:42 AST 10 Units/L (15-37) L 01/10/22 04:42 ALT 9 Units/L (12-78) L 01/10/22 04:42 Alkaline Phosphatase 75 Units/L (46-116) 01/10/22 04:42 Creatine Kinase 19 Units/L (39-308) L 01/09/22 23:17 Troponin I High Sens 11.1 ng/L (4.0-60.0) 01/09/22 23:17 B-Natriuretic Peptide 449 pg/mL (0-79) H 01/07/22 18:21 Total Protein 6.5 g/dL (6.4-8.2) 01/10/22 04:42 Albumin 2.7 g/dL (3.4-5.0) L 01/10/22 04:42 Globulin 3.8 g/dL (2.5-4.5) 01/10/22 04:42 Albumin/Globulin Ratio 0.7 Ratio (1.1-2.1) L 01/10/22 04:42 SARS-CoV-2 (PCR) Negative (NEGATIVE) 01/07/22 22:56 Plan (1) Accelerated hypertension: Status: Acute (2) Bradycardia: Status: Acute (3) Chest pain: Status: Acute
[2022-01-10] MEDS ORDERED: ZOLOFT ONE (08:04)
[2022-01-10] MEDS: CATAPRES TAB 0.2 MG PO SCH (08:21)
[2022-01-10] MEDS: COZAAR PO SCH (08:23)
[2022-01-10] MEDS: PLAVIX PO SCH (08:23)
[2022-01-10] MEDS: APRESOLINE TAB 25 MG PO SCH (08:25)
[2022-01-10] MEDS: ELIQUIS PO SCH (08:25)
[2022-01-10] MEDS: TAB-A-VITE PO SCH (08:25)
[2022-01-10] MEDS: ZOLOFT PO SCH (08:26)
[2022-01-10] MEDS: LOVAZA PO SCH (08:29)
[2022-01-10] MEDS: PEPCID TAB 20 MG PO SCH (08:29)
[2022-01-10 09:04] VITALS: BP 131/61
--- NOTE | 2022-01-10 14:46 | W.DIS.FURT ---
Summary of Discharge Discharge Summary of Date Date of Exam: 01/10/22 Admission Date Date of Admission: 01/07/22 Admission Diagnosis Patient Problems (Updated 01/08/22 @ 11:30 by Xu Chau) Hypertension (Acute) I10 Bradycardia (Acute) R00.1 Chest pain (Acute) R07.9 Hospital Course: Pt is a 76 year old male past medical history of Hypertension, Atrial fibrillation, and MDD, admitted for accelerated hypertension and chest pain pain rule out. His hospital/treatment course included: IV hydralazine 10mg Q4h prn for SBP >160. He was started on po anti-hypertensive medications clonidine and hydralazine that had to be adjusted based on blood pressure trends. His home Losartan was also increased to 25mg. Pt responded well to treatments and blood pressure within normal limits on discharge. HI ruled out after serial ekg and cardiac enzymes negative. Rx clonidine 0.2mg BID, hydralazine 50mg BID, Procardia 10mg(prn for SBP>160). Pt discharged in stable condition. Instructed to follow up with pcp and cardiology. Vital Signs: Vital Signs (72 hours) 01/07/22 17:18 01/07/22 17:34 01/07/22 17:39 Temperature 98.0 F Pulse Rate 47 L 49 L 52 L Pulse Rate [Radial] Respiratory Rate 20 Blood Pressure 214/84 Blood Pressure [Left Arm] O2 Sat by Pulse Oximetry 99 98 97 Oxygen Delivery Method 01/07/22 17:39 01/07/22 17:45 01/07/22 18:00 Temperature Pulse Rate 46 L 48 L Pulse Rate [Radial] Respiratory Rate 15 30 H Blood Pressure 197/77 Blood Pressure [Left Arm] O2 Sat by Pulse Oximetry 98 100 Oxygen Delivery Method 01/07/22 18:15 01/07/22 18:30 01/07/22 18:47 Temperature Pulse Rate 49 L 49 L 51 L Pulse Rate [Radial] Respiratory Rate 31 H 26 H 29 H Blood Pressure Blood Pressure [Left Arm] O2 Sat by Pulse Oximetry 97 98 97 Oxygen Delivery Method 01/07/22 18:57 01/07/22 18:57 01/07/22 19:00 Temperature Pulse Rate 51 L 50 L Pulse Rate [Radial] Respiratory Rate 21 18 Blood Pressure 175/70 Blood Pressure [Left Arm] O2 Sat by Pulse Oximetry Oxygen Delivery Method 01/07/22 19:02 09/04/22 19:02 01/07/22 19:10 Temperature Pulse Rate 47 L Pulse Rate [Radial] Respiratory Rate 21 Blood Pressure 169/72 185/72 Blood Pressure [Left Arm] O2 Sat by Pulse Oximetry Oxygen Delivery Method 01/07/22 19:10 01/07/22 19:15 01/07/22 19:24 Temperature Pulse Rate 49 L 52 L 52 L Pulse Rate [Radial] Respiratory Rate 24 31 H 31 H Blood Pressure Blood Pressure [Left Arm] O2 Sat by Pulse Oximetry 98 Oxygen Delivery Method 01/07/22 19:24 01/07/22 19:30 01/07/22 19:31 Temperature Pulse Rate 47 L 49 L Pulse Rate [Radial] Respiratory Rate 24 24 Blood Pressure 176/76 Blood Pressure [Left Arm] O2 Sat by Pulse Oximetry 98 97 Oxygen Delivery Method 01/07/22 19:31 01/07/22 19:40 01/07/22 19:40 Temperature Pulse Rate 46 L Pulse Rate [Radial] Respiratory Rate 18 Blood Pressure 174/115 201/81 Blood Pressure [Left Arm] O2 Sat by Pulse Oximetry 96 Oxygen Delivery Method 01/07/22 19:45 01/07/22 19:50 01/07/22 19:50 Temperature Pulse Rate 48 L 49 L Pulse Rate [Radial] Respiratory Rate 22 20 Blood Pressure 194/81 Blood Pressure [Left Arm] O2 Sat by Pulse Oximetry 93 L Oxygen Delivery Method 01/07/22 20:00 01/07/22 20:07 01/07/22 20:07 Temperature Pulse Rate 49 L 49 L Pulse Rate [Radial] Respiratory Rate 20 21 Blood Pressure 217/86 Blood Pressure [Left Arm] O2 Sat by Pulse Oximetry 96 97 Oxygen Delivery Method 01/07/22 20:11 01/07/22 20:11 01/07/22 20:15 Temperature Pulse Rate 48 L 47 L Pulse Rate [Radial] Respiratory Rate 21 21 Blood Pressure 203/80 Blood Pressure [Left Arm] O2 Sat by Pulse Oximetry 98 98 Oxygen Delivery Method 01/07/22 20:20 01/07/22 20:20 01/07/22 20:30 Temperature Pulse Rate 47 L 47 L Pulse Rate [Radial] Respiratory Rate 29 H 25 H Blood Pressure 199/79 Blood Pressure [Left Arm] O2 Sat by Pulse Oximetry 99 98 Oxygen Delivery Method 01/07/22 20:36 01/07/22 20:36 01/07/22 20:40 Temperature Pulse Rate 45 L Pulse Rate [Radial] Respiratory Rate 23 Blood Pressure 192/81 191/78 Blood Pressure [Left Arm] O2 Sat by Pulse Oximetry 96 Oxygen Delivery Method 01/07/22 20:40 01/07/22 20:45 01/07/22 20:50 Temperature Pulse Rate 46 L 46 L 46 L Pulse Rate [Radial] Respiratory Rate 22 29 H 25 H Blood Pressure Blood Pressure [Left Arm] O2 Sat by Pulse Oximetry 97 97 98 Oxygen Delivery Method 01/07/22 20:51 01/07/22 21:00 01/07/22 21:01 Temperature Pulse Rate 49 L Pulse Rate [Radial] Respiratory Rate 29 H Blood Pressure 196/109 204/84 Blood Pressure [Left Arm] O2 Sat by Pulse Oximetry 97 Oxygen Delivery Method 01/07/22 21:01 01/07/22 21:10 01/07/22 21:10 Temperature Pulse Rate 48 L 46 L Pulse Rate [Radial] Respiratory Rate 33 H 22 Blood Pressure 190/81 Blood Pressure [Left Arm] O2 Sat by Pulse Oximetry 98 97 Oxygen Delivery Method 01/07/22 21:15 01/07/22 21:24 01/07/22 21:24 Temperature Pulse Rate 46 L 46 L Pulse Rate [Radial] Respiratory Rate 25 H 28 H Blood Pressure 228/90 Blood Pressure [Left Arm] O2 Sat by Pulse Oximetry 98 98 Oxygen Delivery Method 01/07/22 21:26 01/07/22 21:26 01/07/22 21:30 Temperature Pulse Rate 50 L 46 L Pulse Rate [Radial] Respiratory Rate 32 H 30 H Blood Pressure 202/81 Blood Pressure [Left Arm] O2 Sat by Pulse Oximetry 98 98 Oxygen Delivery Method 01/07/22 21:31 01/07/22 21:31 01/07/22 21:40 Temperature Pulse Rate 44 L Pulse Rate [Radial] Respiratory Rate 28 H Blood Pressure 215/81 193/60 Blood Pressure [Left Arm] O2 Sat by Pulse Oximetry 98 Oxygen Delivery Method 01/07/22 21:40 01/07/22 21:45 01/07/22 22:00 Temperature Pulse Rate 48 L 47 L 44 L Pulse Rate [Radial] Respiratory Rate 23 38 H 16 Blood Pressure Blood Pressure [Left Arm] O2 Sat by Pulse Oximetry 97 97 98 Oxygen Delivery Method 01/07/22 22:02 01/07/22 22:03 01/07/22 22:10 Temperature Pulse Rate 49 L 46 L Pulse Rate [Radial] Respiratory Rate 23 21 Blood Pressure 221/91 Blood Pressure [Left Arm] O2 Sat by Pulse Oximetry 97 96 Oxygen Delivery Method 01/07/22 22:10 01/07/22 22:15 01/07/22 22:30 Temperature Pulse Rate 47 L 46 L Pulse Rate [Radial] Respiratory Rate 19 19 Blood Pressure 220/91 Blood Pressure [Left Arm] O2 Sat by Pulse Oximetry 99 95 Oxygen Delivery Method 01/07/22 22:39 01/07/22 22:39 01/07/22 22:41 Temperature Pulse Rate 47 L Pulse Rate [Radial] Respiratory Rate 26 H Blood Pressure 206/85 205/74 Blood Pressure [Left Arm] O2 Sat by Pulse Oximetry 96 Oxygen Delivery Method 01/07/22 22:41 01/07/22 22:47 01/07/22 22:48 Temperature Pulse Rate 49 L 59 L Pulse Rate [Radial] Respiratory Rate 20 24 Blood Pressure 204/83 Blood Pressure [Left Arm] O2 Sat by Pulse Oximetry 98 Oxygen Delivery Method 01/07/22 22:48 01/07/22 22:50 01/07/22 22:50 Temperature Pulse Rate 54 L 51 L Pulse Rate [Radial] Respiratory Rate 23 29 H Blood Pressure 207/81 Blood Pressure [Left Arm] O2 Sat by Pulse Oximetry Oxygen Delivery Method 01/07/22 23:32 01/07/22 23:25 01/08/22 00:30 Temperature 98 F Pulse Rate Pulse Rate [Radial] 52 L Respiratory Rate 16 16 Blood Pressure Blood Pressure [Left Arm] 186/72 O2 Sat by Pulse Oximetry 98 Oxygen Delivery Method Room Air Room Air 01/08/22 00:00 01/08/22 00:48 01/08/22 04:00 Temperature 98.2 F 98.8 F Pulse Rate Pulse Rate [Radial] 51 L 60 Respiratory Rate 16 20 Blood Pressure Blood Pressure [Left Arm] 176/77 180/75 O2 Sat by Pulse Oximetry 98 95 Oxygen Delivery Method Room Air Room Air Room Air 01/08/22 07:00 01/08/22 08:13 01/08/22 08:00 Temperature 97.9 F Pulse Rate Pulse Rate [Radial] 60 Respiratory Rate 20 Blood Pressure Blood Pressure [Left Arm] 191/74 O2 Sat by Pulse Oximetry 93 L Oxygen Delivery Method Room Air Room Air Room Air 01/08/22 11:08 01/08/22 13:13 01/08/22 15:00 Temperature 99.4 F Pulse Rate Pulse Rate [Radial] 54 L 53 L 54 L Respiratory Rate 20 Blood Pressure Blood Pressure [Left Arm] 214/83 175/75 144/65 O2 Sat by Pulse Oximetry 96 Oxygen Delivery Method Room Air 01/08/22 16:00 01/08/22 17:31 01/08/22 20:00 Temperature 98.3 F 98.6 F Pulse Rate Pulse Rate [Radial] 54 L 52 L 55 L Respiratory Rate 20 21 Blood Pressure Blood Pressure [Left Arm] 144/65 128/61 157/67 O2 Sat by Pulse Oximetry 97 96 Oxygen Delivery Method Room Air Room Air 01/08/22 20:55 01/08/22 19:00 01/08/22 23:35 Temperature 98.8 F Pulse Rate Pulse Rate [Radial] 55 L Respiratory Rate 20 Blood Pressure Blood Pressure [Left Arm] 150/68 O2 Sat by Pulse Oximetry 95 Oxygen Delivery Method Room Air Room Air Room Air 01/09/22 04:00 01/09/22 07:54 01/09/22 08:25 Temperature 97.9 F 97.9 F Pulse Rate Pulse Rate [Radial] 50 L 63 Respiratory Rate 18 18 Blood Pressure Blood Pressure [Left Arm] 149/68 140/61 O2 Sat by Pulse Oximetry 96 96 Oxygen Delivery Method Room Air Room Air Room Air 01/09/22 07:00 01/09/22 12:00 01/09/22 12:20 Temperature 97.6 F Pulse Rate Pulse Rate [Radial] 52 L 48 L Respiratory Rate 18 Blood Pressure Blood Pressure [Left Arm] 189/70 176/77 O2 Sat by Pulse Oximetry 96 Oxygen Delivery Method Room Air Room Air 01/09/22 14:04 01/09/22 16:00 01/09/22 19:58 Temperature 97.7 F Pulse Rate Pulse Rate [Radial] 60 56 L Respiratory Rate 18 Blood Pressure Blood Pressure [Left Arm] 174/71 176/73 O2 Sat by Pulse Oximetry 96 Oxygen Delivery Method Room Air Room Air 01/09/22 20:00 01/09/22 20:48 01/09/22 19:00 Temperature 97.6 F Pulse Rate Pulse Rate [Radial] 51 L Respiratory Rate 18 Blood Pressure Blood Pressure [Left Arm] 181/70 186/68 O2 Sat by Pulse Oximetry 96 Oxygen Delivery Method Room Air Room Air 01/09/22 22:00 01/09/22 23:10 01/10/22 01:25 Temperature 97.7 F Pulse Rate Pulse Rate [Radial] 55 L Respiratory Rate 22 Blood Pressure Blood Pressure [Left Arm] 178/64 220/80 160/70 O2 Sat by Pulse Oximetry 97 Oxygen Delivery Method Room Air 01/10/22 04:00 01/10/22 07:00 01/10/22 08:00 Temperature 97.9 F 97.6 F Pulse Rate Pulse Rate [Radial] 56 L 55 L Respiratory Rate 20 18 Blood Pressure Blood Pressure [Left Arm] 150/65 131/61 O2 Sat by Pulse Oximetry 97 Oxygen Delivery Method Room Air Room Air Room Air Labs: Laboratory Last Values WBC 6.6 X10^3/uL (3.6-10.0) 01/10/22 04:42 RBC 3.76 X10^6/uL (4.7-6.0) L 01/10/22 04:42 Hgb 9.5 g/dL (13.5-18.0) L 01/10/22 04:42 Hct 28.4 % (42.0-54.0) L 01/10/22 04:42 MCV 75.5 fL (80.0-100.0) L 01/10/22 04:42 MCH 25.2 pg (27.0-34.0) L 01/10/22 04:42 MCHC 33.3 g/dL (33.0-35.0) 01/10/22 04:42 RDW 17.2 % (11.6-16.5) H 01/10/22 04:42 Plt Count 119 X10^3/uL (150.0-450.0) L 01/10/22 04:42 MPV 9.2 fL (7.4-11.0) 01/10/22 04:42 Neut % (Auto) 78.8 % (42.0-75.0) H 01/10/22 04:42 Lymph % (Auto) 10.9 % (21.0-51.0) L 01/10/22 04:42 Terrell % (Auto) 6.8 % (0.0-13.0) 01/10/22 04:42 Eos % (Auto) 2.8 % (0.9-2.9) 01/10/22 04:42 Baso % (Auto) 0.7 % (0.2-1.0) 01/10/22 04:42 Neut # (Auto) 5.2 x10^3/uL (2.2-4.8) H 01/10/22 04:42 Lymph # (Auto) 0.7 X10^3/uL (1.3-2.9) L 01/10/22 04:42 Terrell # (Auto) 0.4 x10^3/uL (0.3-0.8) 01/10/22 04:42 Eos # (Auto) 0.2 x10^3/uL (0.0-0.2) 01/10/22 04:42 Baso # (Auto) 0.0 X10^3/uL (0.0-0.1) 01/10/22 04:42 Absolute Nucleated RBC 0.0 /100WBC 01/10/22 04:42 PT 15.4 SECONDS (11.8-14.3) 01/08/22 04:50 INR Target Range - 01/08/22 04:50 INR 1.27 (0.8-1.3) 01/08/22 04:50 APTT 40.2 SECONDS (22.9-36.5) H 01/08/22 04:50 PTT Comment - 01/08/22 04:50 D-Dimer 0.57 ug/ml (0.0-0.57) 01/07/22 18:21 Sodium 137 mmol/L (136-145) 01/10/22 04:42 Corrected Sodium 138 mmol/L (136-145) 01/10/22 04:42 Potassium 4.3 mmol/L (3.5-5.1) 01/10/22 04:42 Chloride 102 mmol/L (98-107) 01/10/22 04:42 Carbon Dioxide 30.9 mmol/L (21-32) 01/10/22 04:42 BUN 13 mg/dL (7-18) 01/10/22 04:42 Creatinine 1.07 mg/dL (0.70-1.30) 01/10/22 04:42 Est GFR (MDRD) Af Amer > 60 (>60) 01/10/22 04:42 Est GFR (MDRD) Non-Af > 60 (>60) 01/10/22 04:42 Glucose 125 mg/dL (65-99) H 01/10/22 04:42 Calcium 8.0 mg/dL (8.5-10.1) L 01/10/22 04:42 Corrected Calcium 9.0 mg/dL (8.5-10.1) 01/10/22 04:42 Magnesium 2.1 mg/dL (1.7-2.9) 01/10/22 04:42 Total Bilirubin 0.40 mg/dL (0.2-1.0) 01/10/22 04:42 AST 10 Units/L (15-37) L 01/10/22 04:42 ALT 9 Units/L (12-78) L 01/10/22 04:42 Alkaline Phosphatase 75 Units/L (46-116) 01/10/22 04:42 Creatine Kinase 19 Units/L (39-308) L 01/09/22 23:17 Troponin I High Sens 11.1 ng/L (4.0-60.0) 01/09/22 23:17 B-Natriuretic Peptide 449 pg/mL (0-79) H 01/07/22 18:21 Total Protein 6.5 g/dL (6.4-8.2) 01/10/22 04:42 Albumin 2.7 g/dL (3.4-5.0) L 01/10/22 04:42 Globulin 3.8 g/dL (2.5-4.5) 01/10/22 04:42 Albumin/Globulin Ratio 0.7 Ratio (1.1-2.1) L 01/10/22 04:42 SARS-CoV-2 (PCR) Negative (NEGATIVE) 01/07/22 22:56 Reason For Visit: CHEST PAIN, UNCONTROLLED HTN, BRADYCARDIA Discharge Diagnosis All Active Problems (Updated 01/08/22 @ 11:30 by Xu Chau) Accelerated hypertension (Acute) Hypertension (Acute) Bradycardia (Acute) Chest pain (Acute) Plan of Treatment: Continue with present treatment and follow up plan. Pt is to keep follow up appointment as instructed and take medications as ordered. Discharge Medications Discharge Medications: Penicillins Allergy (Verified 01/07/22 18:24) CONTINUE taking the following medications apixaban 5 mg tablet (Eliquis) 5 mg PO BID 01/07/22 [History] clopidogrel 75 mg tablet 75 mg PO QAM 01/07/22 [History] divalproex 500 mg tablet,extended release 24 hr 500 mg PO QPM 01/07/22 [History] famotidine 20 mg tablet 20 mg PO QAM 01/07/22 [History] fludrocortisone 0.1 mg tablet 0.05 mg PO QAM 01/07/22 [History] losartan 25 mg tablet 12.5 mg PO QPM 01/07/22 [History] multivitamin 1 cap PO QAM 01/07/22 [History] omega 3-uiz-zri-fish oil 1,200 mg (144 mg-216 mg) capsule (Fish Oil) 1 cap PO QPM 01/07/22 [History] rosuvastatin 40 mg tablet 40 mg PO QPM 01/07/22 [History] sertraline 100 mg tablet 150 mg PO QAM 01/07/22 [History] New Prescriptions clonidine HCl 0.2 mg tablet 0.2 mg PO BID #30 tabs 01/10/22 [Rx] hydralazine 50 mg tablet 50 mg PO BID #30 tabs 01/10/22 [Rx] losartan 25 mg tablet (Cozaar) 25 mg PO QDAY #30 tabs 01/10/22 [Rx] nifedipine 10 mg capsule 10 mg PO DAILY PRN #30 caps 01/10/22 [Rx] Discharge Disposition Discharge Disposition: Home Discharge Condition: Stable Discharge Plan Discharge Plan Hospital Course: Pt is a 76 year old male past medical history of Hypertension, Atrial fibrillation, and MDD, admitted for accelerated hypertension and chest pain pain rule out. His hospital/treatment course included: IV hydralazine 10mg Q4h prn for SBP >160. He was started on po anti-hypertensive medications clonidine and hydralazine that had to be adjusted based on blood pressure trends. His home Losartan was also increased to 25mg. Pt responded well to treatments and blood pressure within normal limits on discharge. HI ruled out after serial ekg and cardiac enzymes negative. Rx clonidine 0.2mg BID, hydralazine 50mg BID, Procardia 10mg(prn for SBP>160). Pt discharged in stable condition. Instructed to follow up with pcp and cardiology. Patient Disposition: 01 HOME, SELF-CARE Condition: Stable Health Concerns: Post Hospitalization: new medications and changes needed to prevent readmission or further decline. Pt educated and given instructions on all concerns. Care Plan Goals: Problem: Pain/Alteration in Comfort Goal: Improve/ Resolve Pain; Achieve Pain Tolerance Instructions: Take pain medications as prescribed. Contact your primary care provider if your pain is unrelieved or worsens. Follow up with primary care provider as directed. Plan of Treatment: Continue with present treatment and follow up plan. Pt is to keep follow up appointment as instructed and take medications as ordered. Prescriptions: New clonidine HCl 0.2 mg Tablet 0.2 mg PO BID Qty: 30 0RF hydralazine 50 mg Tablet 50 mg PO BID Qty: 30 0RF losartan [Cozaar] 25 mg Tablet 25 mg PO QDAY Qty: 30 0RF nifedipine 10 mg Capsule 10 mg PO DAILY PRNQty: 30 0RF Continued sertraline 100 mg Tablet 150 mg PO QAM clopidogrel 75 mg Tablet 75 mg PO QAM famotidine 20 mg Tablet 20 mg PO QAM divalproex 500 mg Tablet Extended Release 24 Hr 500 mg PO QPM losartan 25 mg Tablet 12.5 mg PO QPM multivitamin Capsule 1 cap PO QAM fludrocortisone 0.1 mg Tablet 0.05 mg PO QAM rosuvastatin 40 mg Tablet 40 mg PO QPM omega 7-svp-xph-fish oil [Fish Oil] 1,200 (144-216) mg Capsule 1 cap PO QPM Eliquis 5 mg Tablet 5 mg PO BID Orders to Discharge Patient Discharge Orders: Discharge (Routine); Ordered 01/10/22 Ordered By: Xu Chau Instructions Instructions: How to Take Your Blood Pressure, [id number], Bradycardia, Adult, How to Take Your Blood Pressure, Nonspecific Chest Pain, Adult, [id number], Preventing Hypertension, Managing Your Hypertension, Chest Wall Pain Stand Alone Forms: Excuse From Work or School, Precautions for COVID19, [facility], Patient Portal, Social Distancing
== END 2022-01-10 10:00 | disposition home or self-care (01) ==
LOC: MED/SURG 17:16 → ER 17:16 → MED/SURG 23:27
PROVIDERS: ADMIT Family Medicine; ATTEND Family Medicine
DX: I10 Essential (primary) hypertension; Z66 Do not resuscitate; R00.1 Bradycardia, unspecified; Z20.822 Contact with and (suspected) exposure to COVID-19; R07.89 Other chest pain; I48.91 Unspecified atrial fibrillation